=== PATIENT | male | born 1975 | race Caucasian/White ===

== ENCOUNTER 2023-05-26 17:04 | Emergency (ER) | payer OTHER ==
[2023-05-26] MEDS: traMADol 50 MG Tab PO ONE (17:40)
[2023-05-26] MEDS ORDERED: traMADol 50 MG Tab ONE (18:00)
== END 2023-05-26 18:15 | disposition home or self-care (01) ==
LOC: LB.ED 17:04
DX: S42.141A Displaced fracture of glenoid cavity of scapula, right shoulder, initial encounter for closed fracture (principal); S42.151A Displaced fracture of neck of scapula, right shoulder, initial encounter for closed fracture; W00.0XXA Fall on same level due to ice and snow, initial encounter
CPT/HCPCS: 73030; 99283; A9270